=== PATIENT | female | born 1935 | race Caucasian/White ===

== ENCOUNTER → 2018-04-24 07:50 | Outpatient (CLI) | payer MEDICARE, OTHER | END | disposition home or self-care (01) | LOC: D.US 07:50 | DX: N28.1 Cyst of kidney, acquired (principal) ==

== ENCOUNTER 2018-12-15 15:56 | Inpatient (IN) | payer MEDICARE, OTHER ==
[2018-12-15] VITALS (8 sets, daily range): BP systolic 116–170; BP diastolic 66–85; Ht 157.5 cm; Wt 55.5 kg
[~2018-12-15] VITALS: Ht 157.5 cm; Wt 55.5 kg
--- NOTE | ~2018-12-15 | HEMODYNAMI ---
PATIENT:CHARLES CORTEZ MEDICAL RECORD: [id number] : 31 [facility] D.[facility]115 [id number] ADMISSION DATE: 12/15/18 Generatedon:12/16/201813:36 Patient name: CHARLES CORTEZ Patient #: [id number] SSN: : 1935 Date of study: 12/16/2018 Page: Of Hemodynamic Procedure Report Patient Data Patient Demographics Procedure consent was obtained First Name: CHARLES Gender: Female Last Name: DANA : 1935 Middle Initial: J Age: 83 year(s) Patient #: [id number] Race: Unknown Additional ID: [id number] Contact details Address: [address] State: [place] City: [place] Zip code: [address] Admission Admission Data Admission Date: 12/15/2018 Admission Time: 18:04 Admit Source: Other Room #: D.2115 Procedure Procedure Types Cath Procedure Diagnostic Procedure LHC LHC w/Coronaries Sedation Charges Moderate Sedation up to 15 minutes PCI Procedure Coronary Stent Coronary Stent Initial Procedure Description Procedure Date Procedure Date: 12/16/2018 Procedure Start Time: 12:56 Procedure End Time: 13:35 Procedure Staff Name Function Zak Fitzgerald MD Performing Physician Ulysses Carrington RT Monitor Shane Helms RT Scrub Diana Hunter RN Nurse Procedure Data Cath Procedure Fluoroscopy Diagnostic fluoroscopy Total fluoroscopy Time: 4.3 time: 4.3 min min Diagnostic fluoroscopy Total fluoroscopy dose: 413 dose: 413 mGy mGy Contrast Material Contrast Material Type Amount (ml) Isovue 300 99 Entry Location Entry Primary Successful Side Size Upsize Upsize Entry Closure Vásquez ccessful Closure Location (Fr) 1 (Fr) 2 (Fr) Remarks Device Remarks Radial Right 6 Fr Mechanical artery Short Compression Femoral Right 5 Fr 6 Fr Exoseal artery Short Estimated blood loss: 10 ml Diagnostic catheters Device Type Used For End Catheter Placement DIAGNOSTIC [place] 110cm 5 Procedure Fr catheter ([id number]) MULTIPACK Pigtail 5 Fr Procedure catheter MULTIPACK JL 4.0 5Fr Procedure catheter MULTIPACK 3DRC 5Fr Procedure catheter Procedure Complications No complications Procedure Medications Medication Administration Route Dosage Oxygen etCO2 Nasal cannula 2 l/min Lidocaine 2% added to field 20 Heparin Flush Bag added to field 2 bags (1000units/500ml NS) 0.9% NaCl I.V. 100 ml/hr Versed I.V. 1 mg Fentanyl I.V. 50 mcg Radial Cocktail I.A. 1 syringe (Verapomil 2mg/Nitro 400mcg/Heparin 1500units) Versed I.V. 1 mg Fentanyl I.V. 50 mcg Heparin Bolus I.V. 4000 units Plavix P.O. 75 mg Hemodynamics Rest Heart Rate: 57 (bpm) Snapshots Pre Cath Intra NCS Post Cath Vital Signs Time Heart Resp SPO2 etCO2 NIBP Rhythm Pain Sedation Rate (ipm) (%) (mmHg) (mmHg) Status Level (bpm) 12:49:14 55 11 92 126/63(88) NSR 0 (11) 10(A) , No pain 12:53:28 56 23 98 17 123/66(81) NSR 0 (11) 10(A) , No pain 12:57:48 55 23 97 29.8 108/50(79) NSR 0 (11) 10(A) , No pain 13:02:00 55 14 95 8.9 111/53(79) NSR 0 (11) 9(A) , No pain 13:06:12 63 12 94 0 103/56(73) NSR 0 (11) 9(A) , No pain 13:10:22 64 14 93 0 106/53(76) NSR 0 (11) 9(A) , No pain 13:14:32 62 14 94 2.9 117/56(94) NSR 0 (11) 9(A) , No pain 13:17:46 63 13 94 4.4 118/60(78) NSR 0 (11) 10(A) , No pain 13:21:58 61 8 97 26.8 118/64(93) NSR 0 (11) 10(A) , No pain 13:26:08 65 10 96 0 129/71(90) NSR 0 (11) 10(A) , No pain 13:30:27 55 8 97 8.2 122/62(79) NSR 0 (11) 10(A) , No pain 13:34:38 62 15 97 29.8 117/69(80) NSR 0 (11) 10(A) , No pain Medications Time Medication Route Dose Verified Delivered Reason Not es Effectiveness by by 12:47:14 Oxygen etCO2 2 l/min Zak Ortiz used for Nasal Lia Hunter RN procedure cannula 12:47:45 Lidocaine 2% added 20ml Zakanette Crespo for local to vial Lia Fitzgerald MD anesthetic field 12:47:52 Heparin Flush added 2 bags Zak Crespo used for Bag to Lia Fitzgerald MD procedure (1000units/500ml field NS) 12:48:02 0.9% NaCl I.V. 100 Zak Ortiz Per physician ml/hr Lia Hunter RN 12:55:34 Versed I.V. 1 mg Zak Ortiz for sedation Lia Hunter RN 12:55:40 Fentanyl I.V. 50 mcg Zak Ortiz for sedation Lia Hunter RN 12:56:47 Radial Cocktail I.A. 1 Zak Crespo for (Verapomil syringe Lia Fitzgerald MD vasodilation 2mg/Nitro 400mcg/Heparin 1500units) 13:00:45 Versed I.V. 1 mg Zak Crespo for sedation Lia Fitzgerald MD 13:00:48 Fentanyl I.V. 50 mcg Zak Crespo for sedation Lia Fitzgerald MD 13:06:34 Heparin Bolus I.V. 4000 Zak Ortiz for ruchi ified units Lia Hunter RN anticoagulation with dr fitzgerald 13:16:50 Plavix P.O. 75 mg Zak Ortiz for Lia Hunter RN antiplatelet therapy Procedure Log Time Note 12:02:30 Informed consent obtained and on chart 12:02:36 Admit Source: Other 12:02:50 Diagnostic Cath status Elective 12:02:52 Time tracking: Call back (After hours or weekends) 12:02:55 Plan of Care:Hemodynamics will remain stable., Cardiac rhythm will remain stable., Comfort level will be maintained., Respiratory function will remain adequate., Patient/ family verbilizes understanding of procedure., Procedure tolerated without complication., Recovers from procedure without complications.. 12:15:44 Ulysses FU(R) sent for patient. Start room use. 12:30:48 Patient received from Med II to CCL 1 Alert and oriented. Tansferred to table in Supine position. 12:30:50 Warm blankets applied, and saleem hugger turned on for patient comfort. 12:30:50 Correct patient and procedure confirmed by team. 12:30:51 ECG and BP/O2 sat monitors applied to patient. 12:47:14 Oxygen 2 l/min etCO2 Nasal cannula was administered by Diana Hunter RN; used for procedure; 12:47:45 Lidocaine 2% 20ml vial added to field was administered by Zak Fitzgerald MD; for local anesthetic; 12:47:52 Heparin Flush Bag (1000units/500ml NS) 2 bags added to field was administered by Zak Fitzgerald MD; used for procedure; 12:48:02 0.9% NaCl 100 ml/hr I.V. was administered by Diana Hunter RN; Per physician; 12:48:05 Vital chart was started 12:51:50 Baseline sample Acquired. 12:51:57 Rhythm: sinus bradycardia 12:51:59 Full Disclosure recording started 12:52:03 H&P Date Dictated: 12/16/2018 Within 30 days and on chart.. 12:52:03 Pre-procedure instructions explained to patient. 12:52:04 Pre-op teaching completed and patient verbalized understanding. 12:52:06 Family in patients room. 12:52:08 Patient NPO since Midnight. 12:52:10 Is the patient allergic to Iodine/contrast media? No. 12:52:12 Is patient on blood thinner?Yes 12:52:28 Patient diabetic? No. 12:52:30 Previous problem with sedation/anesthesia? No ? 12:53:30 Snore? Yes 12:53:32 Sleep apnea? No 12:53:34 Deviated septum? No 12:53:34 Opens mouth fully? Yes 12:53:35 Sticks out tongue? Yes 12:53:37 Airway obstruction? No ? 12:53:39 Dentures? No ? 12:53:57 Pre procedure: right dorsailis pedis pulse 1+ Palpable, but thready & weak; easily obliterated 12:54:02 Modified José's test Ulnar < 7 seconds 12:54:04 Patient pain scale 0/10 ?. 12:54:13 IV patent on arrival in right forearm with 0.9% NaCl at KVO. 12:54:42 Lab results completed and on chart. 12:54:46 Right Radial & Right Groin area was prepped with chlora-prep and draped in sterile fashion 12:54:48 Alarms reviewed by R. N. 12:54:48 Sharps counted by scrub and verified by R.N. 12:54:49 --------ALL STOP TIME OUT------ 12:54:50 Final Timeout: patient, procedure, and site verified with staff and physician. All members of the team are in agreement. 12:54:53 Right Radial & Right Groin site verified by team. 12:54:58 Maximum allowable Isovue 300 dose 300ml. Physician notified. (300ml for normal creatinines. For patients with creatinine of 1.7 or higher multiply weight(kg) x 5 divided by creatinine.) 12:55:02 Fire Safety Assessment: A--An alcohol-based skin anteseptic being used preoperatively., C--Open oxygen or nitrous oxide is being used., D--An ESU, laser, or fiber-optic light is being used. 12:55:04 Physical assessment completed. ASA score P 2 - A patient with mild systemic disease as per Zak Fitzgerald MD. 12:55:07 Sedation plan: IV Moderate Sedation Medication:Versed, Fentanyl 12:55:34 Versed 1 mg I.V. was administered by Diana Hunter RN; for sedation; 12:55:40 Fentanyl 50 mcg I.V. was administered by Diana Hunter RN; for sedation; 12:56:47 Radial Cocktail (Verapomil 2mg/Nitro 400mcg/Heparin 1500units) 1 syringe I.A. was administered by Zak Fitzgerald MD; for vasodilation; 12:56:54 Procedure started. 12:56:58 Local anesthetic to right radial artery with Lidocaine 2% by Zak Fitzgerald MD.INITIAL ACCESS ONLY 12:58:07 Use device set Radial Dx or PCI 12:58:09 Tegaderm 4 x 4 (1626W) opened to sterile field. 12:58:21 ACIST Hand Control (35917) opened to sterile field. 12:58:22 ACIST Manifold (27645) opened to sterile field. 12:58:23 ACIST Syringe (24062) opened to sterile field. 12:58:23 Medline Cath Pack ([id number]) opened to sterile field. 12:58:23 Bag Decanter (2002S) opened to sterile field. 12:58:24 DIAGNOSTIC WIRE .035 260cm J wire (033056) opened to sterile field. 12:58:24 MBrace Wrist Support (782781176) opened to sterile field. 12:58:25 SHEATH 6FR Slender (37-8692) opened to sterile field. 12:58:57 A 6 Fr Short sheath was inserted into the Right Radial artery 12:59:03 A DIAGNOSTIC [place] 110cm 5 Fr catheter (588249) was advanced over the wire and used for Procedure. 12:59:42 Unable to advance catheter due to radial loop. Catheter removed over the wire. Moving to Femoral approach. 13:00:39 Local anesthetic to right femoral artery with Lidocaine 2% by Zak Fitzgerald MD.ADDITIONAL ACCESS 13:00:45 Versed 1 mg I.V. was administered by Zak Fitzgerald MD; for sedation; 13:00:46 Use device set Multipack Set 13:00:48 Fentanyl 50 mcg I.V. was administered by Zak Fitzgerald MD; for sedation; 13:00:54 SHEATH 5FR [place] (AUC527) opened to sterile field. 13:00:55 DIAGNOSTIC Multipack 5Fr catheter set (CZ6071) opened to sterile field. 13:01:17 A 5 Fr sheath was inserted into the Right Femoral artery 13:01:37 A MULTIPACK Pigtail 5 Fr catheter was advanced over the wire and used for Procedure. 13:01:39 LV angiography performed. 13:01:40 LV gram done using MUJICA 13:01:46 EF : 60 % 13:01:50 Injector settings: Ml/sec: 10, Volume: 20, 13:01:52 Catheter removed. 13:01:57 A MULTIPACK JL 4.0 5Fr catheter was advanced over the wire and used for Procedure. 13:03:12 LCA angiography performed. 13:03:18 Catheter removed. 13:03:23 A MULTIPACK 3DRC 5Fr catheter was advanced over the wire and used for Procedure. 13:04:12 RCA angiography performed. 13:04:13 Catheter removed. 13:04:19 Use device set LIA PCI 13:04:20 SHEATH 6FR [place] (LGU471) opened to sterile field. 13:04:24 CHOICE PT Extra Support 182cm wire ([id number]) opened to sterile field. 13:04:28 INFLATOR Merit BasixCompak (KL4471) opened to sterile field. 13:05:32 GUIDE 6FR XB 3.5 catheter (63630922) opened to sterile field. 13:05:44 Sheath upsized to a 6 Fr Short. 13:05:52 6 Fr XB 3.5 guide catheter was inserted over the wire 13:06:34 Heparin Bolus 4000 units I.V. was administered by Diana Hunter RN; for anticoagulation; verified with dr fitzgerald 13:08:05 CPTXS wire advanced. 13:10:17 Wire advanced across lesion. 13:12:14 Place stent Inflation Number: 1 A INTEGRITY RX 3.0 x 18 stent ([id number]) was prepped and advanced across the Mid CX. The stent was deployed at 13 LAURO for 0:10 (min:sec). 13:13:07 Stent catheter was removed intact over wire. 13:13:27 Place stent Inflation Number: 1 A INTEGRITY RX 3.0 x 12 stent ([id number]) was prepped and advanced across the Prox CX. The stent was deployed at 19 LAURO for 0:10 (min:sec). 13:13:48 EXOSEAL 6Fr (EX600) opened to sterile field. 13:14:00 Stent catheter was removed intact over wire. 13:14:01 Wire removed. 13:14:02 Guide catheter removed. 13:15:46 Tegaderm 4 x 4 (1626W) opened to sterile field. 13:16:50 Plavix 75 mg P.O. was administered by Diana Hunter RN; for antiplatelet therapy; 13:17:48 Sheath removed intact; hemostasis achieved with Exoseal to the Right Femoral artery. 13:17:49 Procedure ended.(Physican Out) 13:17:52 TR BAND Standard (XOC21OLE) opened to sterile field. 13:18:03 Sheath removed intact; hemostasis achieved with Mechanical Compression to the Right Radial artery. 13:18:29 Fluoroscopy time 04.30 minutes. 13:18:34 Fluoroscopy dose: 413 mGy 13:18:34 Flurop Dose total: 413 13:22:49 Contrast amount:Isovue 300 99ml. 13:22:51 Sharps counted by scrub and verified by R.N. 13:22:56 TR band inflated with 12cc of air. 13:22:58 Insertion/operative site no bleeding no hematoma. 13:24:02 Right groin developed hematoma. Femstop applied at 115. Right distal pulse palpable. 13:33:46 Post-op/insertion site Right Femoral artery dressed using a 4 x 4 and Tegaderm. 13:33:49 Post right femoral artery:stable, soft, clean and dry 13:33:50 Post Procedure Pulses reassessed and unchanged 13:33:53 Post procedure: right dorsailis pedis pulse 2+ Normal; easily identifiable; not easily obliterated. 13:33:56 Post-procedure physical assessment completed. ASA score P 2 - A patient with mild systemic disease as per Zak Fitzgerald MD. 13:33:58 Post procedure rhythm: unchanged. 13:34:01 Estimated blood loss: 10 ml 13:34:02 Post procedure instruction explained to patient.Patient verbalizes understanding. 13:34:03 Patient needs reinforcement of post procedure teaching. 13:34:26 Procedure type changed to Cath procedure, Diagnostic procedure, LHC, LHC w/Coronaries, Sedation Charges, Moderate Sedation up to 15 minutes, PCI procedure, Coronary Stent, Coronary Stent Initial 13:35:28 Procedure and supply charges have been captured, reviewed, submitted and are correct. 13:35:30 Procedure Complication : No complications 13:35:33 Vital chart was stopped 13:35:34 See physician's report for complete and final results. 13:35:36 Report given to PCU. 13:35:39 Patient transfered to PCU with Stretcher. 13:35:42 Procedure ended. 13:35:42 Full Disclosure recording stopped 13:35:46 End room use (Document Last) Intervention Summary Intervention Notes Time ActionType Lesion and Equipment Action# Pressure Duration Attributes Used 13:12:14 Place stent Mid CX INTEGRITY RX 1 13 00:10 3.0 x 18 stent ([id number]) 13:13:27 Place stent Prox CX INTEGRITY RX 1 19 00:10 3.0 x 12 stent ([id number]) Device Usage Item Name Manufacture Quantity Catalog Number Hospital Part Current Mini [facility] Lot# / Charge Number Stock Stock Serial# Code Tegaderm 4 x 3M 2 1626W 060819 061052 432444 5 4 (1626W) ACIST Hand Acist 1 17224 140000 226056 316908 5 Control Medical (14013) Systems Inc ACIST Acist 1 27714 413814 528670 316002 5 Manifold Medical (71188) Systems Inc ACIST Acist 1 28216 576336 690798 053498 20 Syringe Medical (13277) Systems Inc Medline Cath Medline 1 [id number] 537975 35194 915424 5 Pack (WEPS04445) Bag Decanter Microtek 1 2001S 897357 29225 594450 5 (2001S) Medical Inc. DIAGNOSTIC [place] 1 683101 340505 589569 419769 30 WIRE .035 260cm J wire (492117) MBrace Wrist Advanced 1 140-0250-00 959057 10066 454322 5 Support Vascular (106164927) Dynamics SHEATH 6FR Terumo 1 [id number] 412561 191402 589550 5 Slender (80-1060) DIAGNOSTIC Terumo 1 40-5013 530696 081870 915371 5 [place] 110cm 5 Fr catheter (226925) SHEATH 5FR Terumo 1 CAW087 113241 992013 977183 5 [place] (XXP765) DIAGNOSTIC Cardinal 1 DS7603 452277 92186 679799 30 Multipack Health 5Fr catheter set (IV4698) MULTIPACK Cardinal 1 992900 5 Pigtail 5 Fr Health catheter MULTIPACK JL Cardinal 1 507889 5 4.0 5Fr Health catheter MULTIPACK Cardinal 1 034083 5 3DRC 5Fr Health catheter SHEATH 6FR Terumo 1 DKE122 730512 174539 645643 40 [place] (JZY612) CHOICE PT [place] 1 [id number] 120352 771033 918066 5 Extra Scientific Support 182cm wire (6622393I4) INFLATOR Merit 1 CK0674 127054 880459 785020 15 [employer] Medical BasixCompak (VX1955) GUIDE 6FR XB Cardinal 1 26261095 297612 106872 062931 2 3.5 catheter Health (05329147) INTEGRITY RX Medtronic 1 [id number] 488358 111280 546670 5 [id number] 3.0 x 18 stent ([id number]) INTEGRITY RX Medtronic 1 [id number] 605327 952703 834363 5 [id number] 3.0 x 12 stent ([id number]) EXOSEAL 6Fr Cardinal 1 EX600 642329 851897 363491 10 (EX600) Health TR BAND Terumo 1 [id number] 821842 001575 253482 40 Standard (DGS55NVA) Signature Audit [place] Stage Time Signature Unsigned Intra-Procedure 12/16/2018 Shane Helms 1:36:00 PM RT(R) Signatures Monitor : Ulysses Carrington RT Signature : Date : Time : [address] [place] [address]
[2018-12-15] MEDS ORDERED: [UNRECOGNIZED DRUG - REMARK] (16:02)
[2018-12-15] MEDS ORDERED: [UNRECOGNIZED DRUG - REMARK] (16:02)
[2018-12-15 16:18] LABS: HEMATOCRIT 40.9 % (36.0-48.0); HEMOGLOBIN 14.6 g/dL (12-16); IMMATURE GRANULOCYTES 0.2 % (0-5); LYMPHOCYTES 32.9 % (15-50); MCH 31.8 pg (26.0-34.0); MCHC 35.7 g/dL (31.0-37.0); MCV 89.1 fL (80.0-100.0); MEAN PLATELET VOLUME 10.3 fL (7.4-10.4); NEUTROPHILS 54.9 % (40-80); PLATELET COUNT 169 10x3/uL (130-400); RBC 4.59 10x6/uL (4.00-5.40); RDW 13.2 % (11.5-14.5); WBC 5.9 10x3/uL (4.8-10.8)
[2018-12-15] MEDS ORDERED: BAYER CHEWABLE81 MG PO (16:31)
[2018-12-15] MEDS ORDERED: ULTRAM50 MG PO (16:31)
[2018-12-15] MEDS ORDERED: HYDROCHLOROTH12.5 M1 PO (16:31)
[2018-12-15] MEDS ORDERED: COZAAR100 MG PO (16:32)
[2018-12-15 16:34] LABS: ALBUMIN 3.6 g/dL (3.4-5.0); ALKALINE PHOSPHATASE 89 U/L (46-116); ALT (SGPT) 19 U/L (10-68); CALC OSMOLALITY 277 mosm/kg (275-300); CALCIUM 9.2 mg/dL (8.5-10.1); CHLORIDE - SERUM 99 mmol/L (98-107); CREATININE - SERUM 1.5 mg/dL (0.6-1.3); GLUCOSE 104 mg/dL (74-106); POTASSIUM - SERUM 3.3 mmol/L (3.5-5.1); PROTEIN - SERUM 7.5 g/dL (6.4-8.2); SODIUM 136 mmol/L (136-145); UREA NITROGEN 28 mg/dL (7-18); eGFR NON AFRICAN AMERICAN 35 mL/min (90-120)
[2018-12-15 16:44] LABS: CKMB 1.2 U/L (0.0-3.6); CREATINE KINASE 119 UL (21-215); MAGNESIUM - SERUM 1.9 mg/dL (1.8-2.4); PRO BNP 1376 pg/mL (0-450); TROPONIN-I < 0.017 ng/mL (0.000-0.060)
[2018-12-15] MEDS ORDERED: FLUTICASONE PRO16 GM NASAL (20:26)
[2018-12-15] MEDS ORDERED: ANTIVERT12.5 MG PO (20:26)
[2018-12-15] MEDS ORDERED: KLOR-CON 1010 MEQ PO (20:27)
[2018-12-15] MEDS ORDERED: OMEPRAZOLE20 M1 PO (20:28)
[2018-12-15 22:44] LABS: CKMB 0.8 U/L (0.0-3.6); CREATINE KINASE 79 UL (21-215); TROPONIN-I 0.022 ng/mL (0.000-0.060)
[2018-12-16 00:54] VITALS: BP 116/66
[2018-12-16 04:00] VITALS: BP 126/66
[2018-12-16 05:36] LABS: CALC OSMOLALITY 276 mosm/kg (275-300); CALCIUM 8.9 mg/dL (8.5-10.1); CARBON DIOXIDE 27.8 mmol/L (21.0-32.0); CHLORIDE - SERUM 103 mmol/L (98-107); CKMB 0.8 U/L (0.0-3.6); CREATINE KINASE 76 UL (21-215); GLUCOSE 79 mg/dL (74-106); SODIUM 137 mmol/L (136-145); TROPONIN-I 0.023 ng/mL (0.000-0.060); UREA NITROGEN 25 mg/dL (7-18)
[2018-12-16 05:38] LABS: CREATININE - SERUM 1.1 mg/dL (0.6-1.3); eGFR NON AFRICAN AMERICAN 50 mL/min (90-120)
[2018-12-16 07:58] VITALS: BP 129/72
[2018-12-16 11:22] VITALS: BP 105/57
[2018-12-16 16:10] VITALS: BP 117/66
[2018-12-16 20:00] VITALS: BP 107/53
[2018-12-17] VITALS: BP 118/54
[2018-12-17 04:00] VITALS: BP 105/49
[2018-12-17 06:02] LABS: BASOPHILS 0.4 % (0-2); EOSINOPHILS 0.1 % (0-7); IMMATURE GRANULOCYTES 0.3 % (0-5); LYMPHOCYTES 17.1 % (15-50); MCH 30.4 pg (26.0-34.0); MCHC 33.6 g/dL (31.0-37.0); MCV 90.4 fL (80.0-100.0); MEAN PLATELET VOLUME 10.8 fL (7.4-10.4); MONOCYTES 7.9 % (2-11); NEUTROPHILS 74.2 % (40-80); PLATELET COUNT 160 10x3/uL (130-400); RDW 13.5 % (11.5-14.5); WBC 7.3 10x3/uL (4.8-10.8)
[2018-12-17 06:16] LABS: HEMOGLOBIN 11.1 g/dL (12-16); RBC 3.65 10x6/uL (4.00-5.40)
[2018-12-17 06:18] LABS: ANION GAP 12.1 mmol/L (8-16); CALCIUM 8.7 mg/dL (8.5-10.1); CARBON DIOXIDE 26.7 mmol/L (21.0-32.0); CREATININE - SERUM 1.2 mg/dL (0.6-1.3); POTASSIUM - SERUM 3.8 mmol/L (3.5-5.1)
[2018-12-17] MEDS ORDERED: BETAPACE 80 MG80 MG PO (07:14)
[2018-12-17] MEDS ORDERED: PLAVIX75 MG PO (07:16)
[2018-12-17] MEDS ORDERED: PROTONIX40 MG PO (07:17)
[2018-12-17 08:16] VITALS: BP 127/51
[2018-12-17 11:58] VITALS: BP 109/50
--- NOTE | 2018-12-18 10:57 | MORECARE ---
CASE MANAGEMENT DISCHARGE SUMMARY PATIENT: CHARLES CORTEZ UNIT: [id number] ADM DATE: 12/16/18 AGE: 83 : [birth year] SEX: F ROOM/BED: D.8135 AUTHOR: SHANNAN ALVARADO PHYSICIAN: REFERRING PHYSICIAN: CHARISSE COELLO MD DATE OF SERVICE: 12/18/18 Discharge Plan Patient Name: CHARLES CORTEZ [facility] [facility] 1935 Planned Disposition: Home Anticipated Discharge Date: 12/17/18 Discharge Date: 12/17/2018 Expected LOS: 1 Initial Reviewer: [email or web address] Initial Review Date: 12/18/2018 Generated: 12/18/18 9:03 am Patient Name: CHARLES CORTEZ Page 99533 at 1057 All edits/amendments must be made on the electronic document DICTATION DATE: 12/18/18802 QUALITY COMPLIANCE COORDINATOR: MARLENY 12/18/18 08 RPT#: [id number] DC DATE:12/17/18 STATUS: DIS IN [facility] [address] [place] [address] END OF REPORT
--- NOTE | 2018-12-19 14:39 | CN ---
PATIENT NAME:CHARLES CORTEZ MEDICAL RECORD: [id number] : [birth year] LOCATION:D. D.2115 ADMIT DATE: 12/16/18 ACCOUNT: [id number] CONSULTING PHYSICIAN: SANJUANA GREWAL MD REFERRING PHYSICIAN: CHARISSE COELLO MD DATE OF CONSULTATION: 12/16/2018 DIAGNOSES: 1. Unstable angina. 2. Paroxysmal atrial fibrillation. 3. Hypertension. HISTORY: Mrs. Cortez has no cardiac history. She presents with increasing episodes of chest discomfort. She was noted to have episodic atrial fibrillation. With the atrial fibrillation and rapid ventricular response, she had chest discomfort. With the atrial fibrillation, she as well had nonspecific ST-T abnormalities. She was placed on sotalol. She has maintained sinus rhythm now. Her troponin is not elevated. PHYSICAL EXAMINATION: GENERAL APPEARANCE: Well-nourished, well-developed, appears stated age. Level of distress, comfortable. PSYCHIATRIC: Mental status, alert, normal affect. Orientation, oriented to time, place and person. EYES: Lids and conjunctiva, noninjected. No discharge, no pallor. ENT: Lips, teeth, gums, normal dentition. Oropharynx, no cyanosis, no pallor. NECK: Carotid arteries, bilateral normal upstroke, no bruits, no thrills. JUGULAR VEINS: No jugular venous pressure or distention. CERVICAL LYMPH NODES: Nontender, nonenlarged. THYROID: Not enlarged. Nontender. No nodules. LUNGS: Respiratory effort, unlabored. CHEST: Normal curvature. No thoracic deformity. No chest wall tenderness. Percussion, resonant. Auscultation, clear. No wheezes, no rales, no rhonchi. CARDIOVASCULAR: Precordial exam, nondisplaced. No heaves or pericardial thrills. Rate and rhythm, regular. Heart sounds, normal S1, normal S2. No S3, no gallop, no rub. Systolic murmur, not heard. Diastolic murmur, not heard. EXTREMITIES: No cyanosis, no edema. Peripheral pulses, full and equal in all extremities, except as noted. No bruits appreciated. ABDOMEN: Soft, nondistended. Normal aorta. No bruit. Nontender. No masses. Liver, nontender, no hepatomegaly. Spleen, nontender, no splenomegaly. MUSCULOSKELETAL: No joint tenderness. No joint swelling. No erythema. NEUROLOGICAL: Normal gait, normal strength, normal tone. SKIN: Warm and dry. OVERALL IMPRESSION: Chest pain with tachycardia and atrial fibrillation. Most likely, she has hemodynamically significant coronary artery disease, basically failing a stress test with the tachycardia and the atrial fibrillation. Continue the sotalol. Proceed with coronary angiography. Further care depends upon findings of the angiography. TRANSINT:[id number] Voice Confirmation ID: [id number] DOCUMENT ID: [id number] CONSULT REPORT [id number] CHARLES CORTEZ JEFFREY MD at 1439 CC: [id number] DICTATION DATE: 12/16/18 0902 [employer] SUPERVISOR: 12/16/18 1214 DIS IN 12/17/18 [facility] [address] [place] [address]
--- NOTE | 2018-12-19 14:39 | OP ---
PATIENT NAME: CHARLES CORTEZ MEDICAL RECORD: [id number] :31 LOCATION:D.M2 D.2115 ADMISSION DATE:12/16/18 SURGEON: SANJUANA GREWAL MD DATE OF OPERATION: 12/16/2018 PROCEDURES: 1. PTCA and stent, left circumflex. 2. Left heart catheterization. 3. Selective coronary angiography. 4. Left ventriculogram. INDICATION: Angina and coronary artery disease. PROCEDURE IN DETAIL: After informed consent was obtained with detailed description of risks and benefits as well as alternative therapies, the patient elected to proceed with angiogram and angioplasty. The right femoral area was prepped and draped in normal sterile fashion. The right femoral artery was cannulated via modified Seldinger technique with placement of 6-German sheath. All catheters were exchanged through this sheath. FINDINGS: Left ventriculogram performed in standard 30-degree MUJICA view reveals good cardiac wall motion throughout all segments. Overall ejection fraction is estimated at 60%. SELECTIVE CORONARY ANGIOGRAPHY: 1. Left main has no significant angiographic disease. 2. Left anterior descending has 80% stenosis proximally, 80% stenosis at mid, and 80% stenosis of the LAD diagonal. 3. Left circumflex has 80% stenosis times 2. 4. Right coronary has mild irregularities, but no flow-limiting stenosis. PTCA AND STENT OF THE LEFT CIRCUMFLEX: The stents used were 3.0 x 18 and 3.0 x 12, both Integrity stents. Result was 0% residual stenosis. OVERALL IMPRESSION: Successful PTCA and stents of the left circumflex, going from 80% initial times 2. PLAN: PTCA and stent of LAD and LAD diagonal in the near future. TRANSINT:[id number] Voice Confirmation ID: [id number] DOCUMENT ID: [id number] SANJUANA GREWAL MD at 1439 CC: [id number] DICTATION DATE: 12/16/18 1320 POULTRY FIELD SERVICE TECHNICIAN: 12/16/181923 DIS IN 12/17/18 [facility] [address] [id number]
== END 2018-12-17 13:14 | disposition home or self-care (01) | DRG 249 ==
LOC: D.ER 15:56 → D.EDHOLD 18:04 → OBSVTIME 18:05 → D.M2 18:29
PROVIDERS: Emergency Medicine; Family Medicine; Internal Medicine Interventional Cardiology; ADMIT Family Medicine; ATTEND Family Medicine
PROC: B2111ZZ Fluoroscopy of Multiple Coronary Arteries using Low Osmolar Contrast (ICD-10-PCS; 2018-12-16)
PROC: B2151ZZ Fluoroscopy of Left Heart using Low Osmolar Contrast (ICD-10-PCS; 2018-12-16)
PROC: 02703EZ Dilation of Coronary Artery, One Artery with Two Intraluminal Devices, Percutaneous Approach (ICD-10-PCS; principal; 2018-12-16 12:15)
PROC: 4A023N7 Measurement of Cardiac Sampling and Pressure, Left Heart, Percutaneous Approach (ICD-10-PCS; 2018-12-16 12:15)
DX: I25.110 Atherosclerotic heart disease of native coronary artery with unstable angina pectoris (principal); L76.32 Postprocedural hematoma of skin and subcutaneous tissue following other procedure; I48.0 Paroxysmal atrial fibrillation; I10 Essential (primary) hypertension; M47.816 Spondylosis without myelopathy or radiculopathy, lumbar region; Y83.9 Surgical procedure, unspecified as the cause of abnormal reaction of the patient, or of later complication, without mention of misadventure at the time of the procedure

== ENCOUNTER 2018-12-19 09:04 | Outpatient (CLI) | payer MEDICARE, OTHER ==
[~2018-12-19] VITALS: Ht 152.4 cm; Wt 55.5 kg
--- NOTE | ~2018-12-19 | HEMODYNAMI ---
PATIENT:CHARLES CORTEZ MEDICAL RECORD: [id number] : 31 LOCATION:[place] ADMISSION DATE: 12/19/18 Generatedon:12/19/201811:31 Patient name: CHARLES CORTEZ Patient #: [id number] SSN: : 1935 Date of study: 12/19/2018 Page: Of Hemodynamic Procedure Report Patient Data Patient Demographics Procedure consent was obtained First Name: CHARLES Gender: Female Last Name: DANA : 1935 [facility] Initial: J Age: 83 year(s) Patient #: [id number] Race: Unknown Additional ID: [id number] Contact details Address: [address] State: [place] City: [place] Zip code: [address] Admission Admission Data Admission Date: 12/19/2018 Admission Time: 9:04 Admit Source: Other Weight (lbs.): 121.25 Weight (kg.): 55 Lab Results Lab Result Date: 12/19/2018 Lab Result Time: 0:00 Biochemistry Name Units Result Min Max BUN mg/dl 28 --(----)-* 7 18 Creatinine mg/dl 1.1 --(--*-)-- 0.6 1.3 CBC Name Units Result Min Max Hemoglobin g/dl 11.3 *-(----)-- 13.5 17.5 Procedure Procedure Types Cath Procedure PCI Procedure Coronary Stent Coronary Stent Initial Coronary Stent Additional Procedure Description Procedure Date Procedure Date: 12/19/2018 Procedure Start Time: 11:17 Procedure End Time: 11:28 Procedure Staff Name Function Zak Fitzgerald MD Performing Physician Ulysses Carrington RT Monitor Shane Helms RT Scrub James Haji RN Nurse Procedure Data Cath Procedure Fluoroscopy Diagnostic fluoroscopy Total fluoroscopy Time: 2.4 time: 2.4 min min Diagnostic fluoroscopy Total fluoroscopy dose: 190 dose: 190 mGy mGy Contrast Material Contrast Material Type Amount (ml) Isovue 300 52 Entry Location Entry Primary Successful Side Size Upsize Upsize Entry Closure Succes sful Closure Location (Fr) 1 (Fr) 2 (Fr) Remarks Device Remarks Femoral Left 6 Fr Exoseal artery Short Estimated blood loss: 10 ml Procedure Complications No complications Procedure Medications Medication Administration Route Dosage 0.9% NaCl I.V. 100 ml/hr Oxygen etCO2 Nasal cannula 2 l/min Heparin Flush Bag added to field 2 bags (1000units/500ml NS) Lidocaine 2% added to field 20 Fentanyl I.V. 25 mcg Plavix P.O. 75 mg Versed I.V. 0.5 mg Fentanyl I.V. 25 mcg Heparin Bolus I.V. 4000 units Hemodynamics Rest HGB: 11.3 (g/dl) Heart Rate: 57 (bpm) Pressure Samples Time Site Value (mmHg) Purpose Heart Use Rate(bpm) 11:19 AO 165/65(103) Snapshot 56 Snapshots Pre Cath Intra NCS Post Cath Vital Signs Time Heart Resp SPO2 etCO2 NIBP (mmHg) Rhythm Pain Sedation Rate (ipm) (%) (mmHg) Status Level (bpm) 11:05:22 59 12 100 27.7 149/81(95) NSR 0 (11) 10(A) , No pain 11:09:32 56 14 100 23.1 162/75(92) NSR 0 (11) 10(A) , No pain 11:13:48 56 13 100 22.4 162/74(100) NSR 0 (11) 10(A) , No pain 11:18:03 58 14 100 25.4 153/70(104) NSR 0 (11) 10(A) , No pain 11:22:16 57 15 100 15.7 156/74(88) NSR 0 (11) 9(A) , No pain 11:26:31 56 11 100 23.9 155/66(113) NSR 0 (11) 9(A) , No pain Medications Time Medication Route Dose Verified Delivered Reason Notes Effectiveness by by 11:07:36 0.9% NaCl I.V. 100 James James Per physician ml/hr Adithya Haji RN RN 11:07:46 Oxygen etCO2 2 James James for low 02 sats Nasal l/min Adithya Haji cannula RN RN 11:07:56 Heparin Flush added 2 James James used for Bag to bags Lorigan Lorigan procedure (1000units/500ml field RN RN NS) 11:08:06 Lidocaine 2% added 20ml James James for local to vial Adithya Haji anesthetic RN RN 11:08:18 Fentanyl I.V. 25 James James for sedation mcg Adithya Haji RN RN 11:08:51 Plavix P.O. 75 mg James James for Adithya Haji antiplatelet RN RN therapy 11:09:01 Versed I.V. 0.5 James James for sedation mg Adithya Haji RN RN 11:13:53 Fentanyl I.V. 25 James James for sedation mcg Adithya Haji RN RN 11:19:14 Heparin Bolus I.V. 4000 James James for units Adithya Haji anticoagulation RN printing machinist Log Time Note 10:40:06 James Haji RN sent for patient. Start room use. 10:49:54 Informed consent obtained and on chart 10:49:57 Admit Source: Other 10:50:22 Diagnostic Cath status Elective 10:50:25 Time tracking: Regular hours (M-F 7:00 - 5:00) 10:50:29 Plan of Care:Hemodynamics will remain stable., Cardiac rhythm will remain stable., Comfort level will be maintained., Respiratory function will remain adequate., Patient/ family verbilizes understanding of procedure., Procedure tolerated without complication., Recovers from procedure without complications.. 10:51:48 H&P Date Dictated: 12/19/2018 New H&P dictated by physician.. 10:54:04 Patient received from Pre/Post Procedure Room to CCL 2 Alert and oriented. Tansferred to table in Supine position. 10:54:05 Warm blankets applied, and saleem hugger turned on for patient comfort. 10:54:05 Correct patient and procedure confirmed by team. 10:54:06 ECG and BP/O2 sat monitors applied to patient. 10:54:08 Pre-procedure instructions explained to patient. 10:54:08 Pre-op teaching completed and patient verbalized understanding. 10:54:09 Family in waiting room. 10:54:10 Patient NPO since Midnight. 11:04:16 Vital chart was started 11:04:17 Baseline sample Acquired. 11:04:20 Rhythm: sinus bradycardia 11:04:22 Full Disclosure recording started 11:04:25 Is the patient allergic to Iodine/contrast media? No. 11:04:25 Is patient on blood thinner?Yes 11:04:27 ACC The patient was administered the following blood thiners within the last 24 hours: ACCPlavix 11:04:29 Patient diabetic? No. 11:04:31 Previous problem with sedation/anesthesia? No ? 11:04:32 Snore? Yes 11:04:33 Sleep apnea? No 11:04:34 Deviated septum? No 11:04:34 Opens mouth fully? Yes 11:04:35 Sticks out tongue? Yes 11:04:37 Airway obstruction? No ? 11:04:40 Dentures? Yes IN 11:04:44 Pre procedure: left dorsailis pedis pulse 1+ Palpable, but thready & weak; easily obliterated 11:04:53 Patient pain scale 0/10 ?. 11:05:05 IV patent on arrival in left forearm with 0.9% NaCl at KVO. 11:05:07 Lab results completed and on chart. 11:05:12 Left groin area was prepped with chlora-prep and draped in sterile fashion 11:05:12 Alarms reviewed by R. N. 11:05:13 Sharps counted by scrub and verified by R.N. 11:05:15 Use device set Radial Dx or PCI 11:05:17 Use device set TAUTH PCI 11:05:20 Tegaderm 4 x 4 (1626W) opened to sterile field. 11:05:21 ACIST Manifold (66016) opened to sterile field. 11:05:22 ACIST Hand Control (50614) opened to sterile field. 11:05:23 ACIST Syringe (78508) opened to sterile field. 11:05:24 Medline Cath Pack ([id number]) opened to sterile field. 11:05:24 Bag Decanter (2002) opened to sterile field. 11:05:25 DIAGNOSTIC WIRE .035 260cm J wire (563575) opened to sterile field. 11:05:27 INFLATOR Merit BasixCompak (XE5936) opened to sterile field. 11:05:29 SHEATH 6FR [place]rock (IYE387) opened to sterile field. 11:05:31 CHOICE PT Extra Support 182cm wire ([id number]) opened to sterile field. 11:06:39 --------ALL STOP TIME OUT------ :39 Final Timeout: patient, procedure, and site verified with staff and physician. All members of the team are in agreement. 11:06:41 Left groin site verified by team. 11:06:45 Maximum allowable Isovue 300 dose 300ml. Physician notified. (300ml for normal creatinines. For patients with creatinine of 1.7 or higher multiply weight(kg) x 5 divided by creatinine.) 11:06:50 Fire Safety Assessment: A--An alcohol-based skin anteseptic being used preoperatively., C--Open oxygen or nitrous oxide is being used., D--An ESU, laser, or fiber-optic light is being used. 11:06:55 Physical assessment completed. ASA score P 2 - A patient with mild systemic disease as per Zak Fitzgerald MD. 11:06:59 Sedation plan: IV Moderate Sedation Medication:Versed, Fentanyl 11::36 0.9% NaCl 100 ml/hr I.V. was administered by James Haji RN; Per physician; 11:07:46 Oxygen 2 l/min etCO2 Nasal cannula was administered by James Haji RN; for low 02 sats; 11:07:56 Heparin Flush Bag (1000units/500ml NS) 2 bags added to field was administered by James Haji RN; used for procedure; 11:08:06 Lidocaine 2% 20ml vial added to field was administered by James Haji RN; for local anesthetic; 11:08:18 Fentanyl 25 mcg I.V. was administered by James Haji RN; for sedation; 11:08:51 Plavix 75 mg P.O. was administered by James Haji RN; for antiplatelet therapy; 11:09:01 Versed 0.5 mg I.V. was administered by James Haji RN; for sedation; 11:11:17 Patient Weight : 121.25 lbs 11::36 Lab Result : BUN 28 mg/dl 11::36 Lab Result : Hemoglobin 11.3 g/dl 11:11:36 Lab Result : Creatinine 1.1 mg/dl 11:13:53 Fentanyl 25 mcg I.V. was administered by James Haji RN; for sedation; 11:17:43 Procedure started. 11:17:49 Local anesthetic to left femerol artery with Lidocaine 2% by Zak Fitzgerald MD.INITIAL ACCESS ONLY 11:17:55 GUIDE 6FR EBU 3.5 catheter ([id number]) opened to sterile field. 11:18:30 A 6 Fr Short sheath was inserted into the Left Femoral artery 11:19:14 Heparin Bolus 4000 units I.V. was administered by James Haji RN; for anticoagulation; 11:19:22 6 Fr EBU 3.5 guide catheter was inserted over the wire 11:19:47 CPTXS wire advanced. 11:22:21 Wire advanced across lesion. 11:22:48 Place stent Inflation Number: 1 A INTEGRITY RX 2.5 x 14 stent ([id number]) was prepped and advanced across the Mid LAD. The stent was deployed at 11 LAURO for 0:10 (min:sec). 11:23:01 Wire redirected to DIAG. 11:23:14 Stent catheter was removed intact over wire. 11:24:39 Place stent Inflation Number: 1 A INTEGRITY RX 2.25 x 14 stent ([id number]) was prepped and advanced across the 1st Diag. The stent was deployed at 13 LAURO for 0:10 (min:sec). 11:26:49 EXOSEAL 6Fr (EX600) opened to sterile field. 11:26:56 Stent catheter was removed intact over wire. 11:26:57 Wire removed. 11:26:57 Guide catheter removed. 11:27:07 Sheath removed intact; hemostasis achieved with Exoseal to the Left Femoral artery. 11:27:09 Procedure ended.(Physican Out) 11:27:32 Fluoroscopy time 02.40 minutes. 11:27:36 Fluoroscopy dose: 190 mGy 11:27:36 Flurop Dose total: 190 11:27:40 Contrast amount:Isovue 300 52ml. 11:27:42 Sharps counted by scrub and verified by R.N. 11:27:43 Insertion/operative site no bleeding no hematoma. 11:27:46 Post-op/insertion site Left Femoral artery dressed using a 4 x 4 and Tegaderm. 11:27:47 Post Procedure Pulses reassessed and unchanged 11:27:49 Post-procedure physical assessment completed. ASA score P 2 - A patient with mild systemic disease as per Zak Fitzgerald MD. 11:27:51 Post procedure rhythm: unchanged. 11:27:56 Estimated blood loss: 10 ml 11:27:57 Post procedure instruction explained to patient.Patient verbalizes understanding. 11:27:57 Patient needs reinforcement of post procedure teaching. 11:28:09 Procedure type changed to Cath procedure, PCI procedure, Coronary Stent, Coronary Stent Initial, Coronary Stent Additional 11:28:10 Procedure and supply charges have been captured, reviewed, submitted and are correct. 11:28:12 Procedure Complication : No complications 11:28:29 Vital chart was stopped 11:28:30 See physician's report for complete and final results. 11:28:32 Report given to Pre/Post Procedure Room. 11:28:34 Patient transfered to Pre/Post Procedure Room with Stretcher. 11:28:36 Procedure ended. 11:28:36 Full Disclosure recording stopped 11:30:59 End room use (Document Last) Intervention Summary Intervention Notes Time ActionType Lesion and Equipment Action# Pressure Duration Attributes Used 11:22:48 Place stent Mid LAD INTEGRITY RX 1 11 00:10 2.5 x 14 stent ([id number]) 11:24:39 Place stent 1st Diag INTEGRITY RX 1 13 00:10 2.25 x 14 stent ([id number]) Device Usage Item Name Manufacture Quantity Catalog Number Hospital Part Current Mini [facility] Lot# / Charge Number Stock Stock Serial# Code Tegaderm 4 x 3M 1 1626W [id number] [id number] [id number] 5 4 (1626W) ACIST Acist 1 58165 528190 957827 053793 5 Manifold Medical (94629) Systems Inc ACIST Hand Acist 1 68004 415048 965864 067913 5 Control Medical (11392) Systems Inc ACIST Acist 1 58894 891687 994461 761097 20 Syringe Medical (21971) Systems Inc Medline Cath Medline 1 [id number] 099836 78776 798426 5 Pack ([id number]) Bag Decanter Microtek 1 456498 35660 134311 5 () Medical Inc. DIAGNOSTIC St [place] 1 861496 796647 801889 603366 30 WIRE .035 260cm J wire (634004) INFLATOR Merit 1 BZ7501 118486 618872 199436 15 Embedly BasixCompak (TN1752) SHEATH 6FR Terumo 1 CMR974 639639 070851 113604 40 [place] (INE441) CHOICE PT [place] 1 [id number] 700095 304242 529800 5 Extra Scientific Support 182cm wire ([id number]) GUIDE 6FR Medtronic 1 [id number] 644056 87382 059139 3 EBU 3.5 catheter ([id number]) INTEGRITY RX Medtronic 1 [id number] 466005 481289 645265 5 [id number] 2.5 x 14 stent ([id number]) INTEGRITY RX Medtronic 1 [id number] 361277 211302 585270 5 [id number] 2.25 x 14 stent ([id number]) EXOSEAL 6Fr Cardinal 1 EX600 937774 851237 576761 10 (EX600) Health Signature Audit [place] Stage Time Signature Unsigned Intra-Procedure 12/19/2018 Ulysses Carrington 11:31:36 AM RT(R) Signatures Monitor : Ulysses Carrington RT Signature : Date : Time : [id number] [place] [address]
[~2018-12-19 09:04] MED LIST: ANTIVERT12.5 MG PO; BAYER CHEWABLE81 MG PO; BETAPACE 80 MG80 MG PO; COZAAR100 MG PO; FLUTICASONE PRO16 GM NASAL; HYDROCHLOROTH12.5 M1 PO; KLOR-CON 1010 MEQ PO; OMEPRAZOLE20 M1 PO; PLAVIX75 MG PO; PROTONIX40 MG PO; ULTRAM50 MG PO; [UNRECOGNIZED DRUG - REMARK]; [UNRECOGNIZED DRUG - REMARK]
[2018-12-19 09:37] VITALS: BP 160/77; Ht 152.4 cm; Wt 55.5 kg
[2018-12-19 09:45] LABS: BASOPHILS 0.7 % (0-2); EOSINOPHILS 1.2 % (0-7); HEMATOCRIT 32.4 % (36.0-48.0); HEMOGLOBIN 11.3 g/dL (12-16); IMMATURE GRANULOCYTES 0.2 % (0-5); MCH 31.2 pg (26.0-34.0); MCHC 34.9 g/dL (31.0-37.0); MCV 89.5 fL (80.0-100.0); MEAN PLATELET VOLUME 10.6 fL (7.4-10.4); MONOCYTES 11.6 % (2-11); NEUTROPHILS 66.3 % (40-80); PLATELET COUNT 162 10x3/uL (130-400); RBC 3.62 10x6/uL (4.00-5.40); RDW 13.1 % (11.5-14.5)
[2018-12-19 09:57] LABS: ANION GAP 10.5 mmol/L (8-16); CALCIUM 9.4 mg/dL (8.5-10.1); CARBON DIOXIDE 29.1 mmol/L (21.0-32.0); CREATININE - SERUM 1.1 mg/dL (0.6-1.3); POTASSIUM - SERUM 3.6 mmol/L (3.5-5.1)
--- NOTE | 2018-12-19 11:47 | NUR ---
PT ARRIVED BY STRETCHER. PLACED ON MONITORS. SUPINE POSITION. ASSESSMENT COMPLETED.
--- NOTE | 2018-12-19 12:00 | NUR ---
PT RESTING COMFORTABLY. LEFT GROIN DRESSING C/D/I. NO S/S OF HEMATOMA NOTED. VSS. CALL LIGHT WITHIN REACH. FAMILY AT BEDSIDE.
--- NOTE | 2018-12-19 12:30 | NUR ---
PT RESTING COMFORTABLY. VSS. LEFT GROIN DRESSING C/D/I. NO S/S OF HEMATOMA NOTED.
--- NOTE | 2018-12-19 12:46 | NUR ---
PT TOLERATING SIPS OF ICE WATER. DENIES NAUSEA.
--- NOTE | 2018-12-19 13:26 | NUR ---
PT RESTING COMFORTABLY. VSS. LEFT GROIN DRESSING C/D/I. NO S/S OF HEMATOMA NOTED. FAMILY AT BEDSIDE. TOLERATING SIPS OF WATER.
--- NOTE | 2018-12-19 14:00 | NUR ---
PT RESTING COMFORTABLY. LEFT GROIN DRESSING C/D/I. NO S/S OF HEMATOMA NOTED. CALL LIGHT WITHIN REACH. FAMILY AT BEDSIDE.
--- NOTE | 2018-12-19 14:30 | NUR ---
PT'S HEAD OF BED INC TO 30 DEGREES. PT TOLERATED WELL. LEFT GROIN DRESSING C/D/I. NO S/S OF HEMATOMA NOTED. PT SET UP WITH SANDWICH TRAY AND DRINK. DENIES NAUSEA. VSS.
--- NOTE | 2018-12-19 14:39 | OP ---
PATIENT NAME: CHARLES CORTEZ MEDICAL RECORD: [id number] :31 LOCATION:D.CAT ADMISSION DATE: SURGEON: SANJUANA GREWAL MD DATE OF OPERATION: 12/19/2018 PROCEDURES: 1. PTCA stent LAD. 2. PTCA stent LAD diagonal. 3. Selective coronary angiography. INDICATION: Angina and coronary artery disease. PROCEDURE IN DETAIL: After informed consent was obtained and after a detailed description of the risks, benefits as well as alternative therapies, the patient elected to proceed with angiogram and angioplasty. The left femoral area was prepped and draped in normal sterile fashion. Left femoral artery was cannulated via modified Seldinger technique with placement of 6-Marshallese sheath. All catheters exchanged through this sheath. FINDINGS: The LAD diagonal is 80% and 90% stenosed as is the LAD. The LAD was addressed with a 2.5 x 14 mm Integrity. The diagonal with a 2.25 x 14 mm Integrity. Result was 0% residual stenosis. OVERALL IMPRESSION: Successful percutaneous transluminal coronary angioplasty stent of the left anterior descending and left anterior descending diagonal, both going from 80% to 90% stenosis to 0% residual. TRANSINT:[id number] Voice Confirmation ID: [id number] DOCUMENT ID: [id number] SANJUANA GREWAL MD at 1439 CC: [id number] DICTATION DATE: 12/19/18 1129 DIRECTOR GROUP SALES: 12/19/18 1323 [facility] [address] [place] [address]
--- NOTE | 2018-12-19 14:39 | HP ---
PATIENT: CHARLES CORTEZ MEDICAL RECORD: [id number] ACCOUNT: [id number] LOCATION:[facility] : 31 ADMISSION DATE: 12/19/18 PCP: CHARISSE COELLO MD HISTORY AND PHYSICAL EXAMINATION ADMITTING DIAGNOSES: 1. Angina. 2. Coronary artery disease. 3. Recent PTCA and stent of the left circumflex with concomitant disease LAD and diagonal. HISTORY OF PRESENT ILLNESS: Ms. Cortez presents with anginal symptomatology, found to have 2-vessel coronary artery disease. Underwent successful PTCA and stent of the circumflex. Now is brought back for PTCA and stent of the LAD and LAD diagonal. PHYSICAL EXAMINATION: GENERAL APPEARANCE: Well-nourished, well-developed, appears stated age. Level of distress, comfortable. PSYCHIATRIC: Mental status, alert, normal affect. Orientation, oriented to time, place and person. EYES: Lids and conjunctiva, noninjected. No discharge, no pallor. ENT: Lips, teeth, gums, normal dentition. Oropharynx, no cyanosis, no pallor. NECK: Carotid arteries, bilateral normal upstroke, no bruits, no thrills. JUGULAR VEINS: No jugular venous pressure or distention. CERVICAL LYMPH NODES: Nontender, nonenlarged. THYROID: Not enlarged. Nontender. No nodules. LUNGS: Respiratory effort, unlabored. CHEST: Normal curvature. No thoracic deformity. No chest wall tenderness. Percussion, resonant. Auscultation, clear. No wheezes, no rales, no rhonchi. CARDIOVASCULAR: Precordial exam, nondisplaced. No heaves or pericardial thrills. Rate and rhythm, regular. Heart sounds, normal S1, normal S2. No S3, no gallop, no rub. Systolic murmur, not heard. Diastolic murmur, not heard. EXTREMITIES: No cyanosis, no edema. Peripheral pulses, full and equal in all extremities, except as noted. No bruits appreciated. ABDOMEN: Soft, nondistended. Normal aorta. No bruit. Nontender. No masses. Liver, nontender, no hepatomegaly. Spleen, nontender, no splenomegaly. MUSCULOSKELETAL: No joint tenderness. No joint swelling. No erythema. NEUROLOGICAL: Normal gait, normal strength, normal tone. SKIN: Warm and dry. OVERALL IMPRESSION: Anginal symptomatology with significant disease of the LAD and LAD diagonal. Proceed with transcatheter revascularization of this territory. TRANSINT:[id number] Voice Confirmation ID: [id number] DOCUMENT ID: [id number] HISTORY AND PHYSICAL [id number] CHARLES CORTEZ JEFFREY MD at 1439 CC: [id number] DICTATION DATE: 12/19/18 1007 SUBSTATION MAINTENANCE TECHNICIAN: 12/19/18 1151 [facility] [address] [id number]
--- NOTE | 2018-12-19 15:04 | NUR ---
LEFT ARM PIV D/C'D WITH CATH TIP INTACT. PT TOLERATED WELL. PT INSTRUCTED TO GET UP AND DRESSED.
--- NOTE | 2018-12-19 15:15 | NUR ---
DISCUSSED DISCHARGE INSTRUCTIONS WITH PT AND PT'S FAMILY. THEY VOICED UNDERSTANDING.
--- NOTE | 2018-12-19 15:30 | NUR ---
PT TAKEN TO VEHICLE BY WHEELCHAIR. STOPPED BY RESTROOM AND VOIDED WITHOUT DIFFICULTY. NO S/S OF DISTRESS NOTED. ALL BELONGINGS AND PAPERWORK IN HAND.
== END 2018-12-19 15:30 | disposition home or self-care (01) ==
LOC: D.CATH 09:04
PROVIDERS: ATTEND Internal Medicine Interventional Cardiology
DX: I25.119 Atherosclerotic heart disease of native coronary artery with unspecified angina pectoris (principal); Z95.5 Presence of coronary angioplasty implant and graft; Z01.812 Encounter for preprocedural laboratory examination

== ENCOUNTER → 2019-07-12 10:34 | Outpatient (CLI) | payer MEDICARE, OTHER ==
[2018-12-19 09:37] VITALS: BMI 23.8
== END | disposition home or self-care (01) ==
LOC: D.US 10:34
PROVIDERS: ATTEND Specialist
DX: N28.1 Cyst of kidney, acquired (principal)

== ENCOUNTER → 2020-02-13 08:01 | Outpatient (CLI) | payer MEDICARE, OTHER ==
[2018-12-19 09:37] VITALS: BMI 23.8
== END | disposition home or self-care (01) ==
LOC: D.MRI 08:01
PROVIDERS: ATTEND Family Medicine
DX: G45.9 Transient cerebral ischemic attack, unspecified (principal)